=== PATIENT | male | born 1945 | race Caucasian/White ===

== ENCOUNTER 2024-10-10 13:34 | Inpatient (IN) | payer MEDICARE, BC ==
[~2024-10-10] VITALS: Ht 188 cm; Wt 69.4 kg
[2024-10-10 13:34] VITALS: BP 116/59
[2024-10-10 13:59] VITALS: BP 116/59
[2024-10-10 16:55] VITALS: BP 123/66; TEMP 98.1; O2SAT 98
[2024-10-10] MEDS ORDERED: ACETAMINOPHEN 325 MG TABLET PO PRN (18:30)
[2024-10-10] MEDS ORDERED: MAGNESIUM HYDROXIDE 30 ML LIQUID UDC PO PRN ×2 (18:30→21:15)
[2024-10-10] MEDS ORDERED: ONDANSETRON 4 MG/2 ML VIAL IV PRN (18:30)
[2024-10-10] MEDS ORDERED: NORM50IV2 IV (19:27)
[2024-10-10] MEDS ORDERED: ATOR20TA PO (19:27)
[2024-10-10] MEDS ORDERED: CHOL200026 PO (19:27)
[2024-10-10] MEDS ORDERED: VITA1TAB57 PO (19:27)
[2024-10-10] MEDS ORDERED: ACET-2154 PO (19:27)
[2024-10-10] MEDS ORDERED: MAG355OR18 PO (19:27)
[2024-10-10] MEDS ORDERED: VANC750V2 IV (19:27)
[2024-10-10] MEDS ORDERED: ASPI81TA31 PO (19:27)
[2024-10-10] MEDS ORDERED: MAGN400O6 PO (19:27)
[2024-10-10] MEDS ORDERED: ONDA4VIA23 IVP (19:27)
[2024-10-10] MEDS ORDERED: ASCO500T10 PO (19:27)
[2024-10-10] MEDS ORDERED: CEFE2FRO IV (19:27)
[2024-10-10] MEDS ORDERED: RXVAN IV (19:27)
[2024-10-10] MEDS ORDERED: FERR-68 PO (19:27)
[2024-10-10] MEDS ORDERED: DEXTROSE 5% IV SCH (19:30)
[2024-10-10] MEDS ORDERED: VANCOMYCIN IV SCH (19:30)
[2024-10-10] MEDS ORDERED: FERROUS SULFATE 325 MG TABEC PO SCH (21:00)
[2024-10-10] MEDS ORDERED: REMEDY ESSENTIAL ZINC PASTE 113 GM TOP SCH (21:00)
[2024-10-10] MEDS ORDERED: ATORVASTATIN 20 MG TABLET PO SCH (21:00)
[2024-10-10] MEDS ORDERED: MAG HYDROX/AL HYDROX/SIMETH 30 ML LIQUID UDC PO PRN (21:15)
[2024-10-10] MEDS ORDERED: ACETAMINOPHEN 325 MG TABLET-SA PATIENTS-PAIN ONLY PO PRN (21:15)
[2024-10-10] MEDS ORDERED: IV NORMAL SALINE 50 ML BAG IV SCH (21:15)
[2024-10-10] MEDS ORDERED: CEFEPIME HCL 1 G in IV DEXTROSE 5% 50 ML IV SCH ×2 (22:00)
[2024-10-10 22:21] VITALS: BP 102/52; TEMP 99.1; O2SAT 95
[2024-10-10] MEDS ORDERED: CEFEPIME HCL 1 G VIAL ONE (23:07)
[2024-10-10] MEDS ORDERED: VANCOMYCIN IV 200 ML ONE (23:07)
[2024-10-10] MEDS: VANCOMYCIN IV 1,000 MG in IV DEXTROSE 5% 250 ML IV ONE (23:35)
[2024-10-10] MEDS: CEFEPIME HCL 1 G in IV DEXTROSE 5% 50 ML IV ONE (23:54)
[2024-10-11] MEDS ORDERED: IV NS 1000 ML 1,000 ML IV PRN (05:15)
[2024-10-11] MEDS ORDERED: ACETAMINOPHEN 325 MG TABLET PO PRN (05:15)
[2024-10-11 06:12] VITALS: BP 126/88; TEMP 98.6; O2SAT 98
[2024-10-11] MEDS: PANTOPRAZOLE SODIUM 40 MG TABLET.DR PO SCH (06:20)
[2024-10-11 07:40] LABS: BASOPHILS % (AUTO) 0.2 % (0.0-2.0); EOSINOPHILS % (AUTO) 0.6 % (0.0-7.0); HEMATOCRIT 37.5 % (36.7-47.1); HEMOGLOBIN 12.8 g/dL (12.5-16.3); LYMPHOCYTES % (AUTO) 15.2 % (20.5-51.5); MEAN CORPUSCULAR HEMOGLOBIN 28.3 uug (23.8-33.4); MEAN CORPUSCULAR HGB CONC 34 g/dL (32.5-36.3); MEAN CORPUSCULAR VOLUME 82.6 fL (73.0-96.2); MONOCYTES # (AUTO) 0.8 K/uL (0.1-1.30); MONOCYTES % (AUTO) 12.2 % (0.0-11.0); NEUTROPHILS # (AUTO) 4.8 K/uL (1.8-8.9); NEUTROPHILS % (AUTO) 71.8 % (38.5-71.5); PLATELET COUNT (AUTO) 122 K/uL (152-348); RED BLOOD CELL COUNT(AUTO) 4.54 MIL/uL (4.06-5.63); RED CELL DISTRIBUTION WIDTH 14.3 % (12.1-16.2); WHITE BLOOD COUNT (AUTO) 6.7 K/uL (3.6-10.2)
[2024-10-11 07:53] LABS: DIFFERENTIAL COMMENT 1
[2024-10-11 08:00] VITALS: BP 110/59; TEMP 98; O2SAT 97
[2024-10-11 08:11] LABS: IRON, SERUM 15 ug/dL (50-175)
[2024-10-11 08:33] LABS: ALANINE AMINOTRANSFERASE 102 U/L (16-63); ALBUMIN 2.2 g/dL (3.4-5.0); ALKALINE PHOSPHATASE 74 U/L (50-136); ASPARTATE AMINOTRANSFERASE 96 U/L (15-37); BILIRUBIN,TOTAL 0.9 mg/dL (0.2-1.0); CALCIUM 8.7 mg/dL (8.5-10.1); CARBON DIOXIDE 29 mmol/L (21-32); CHLORIDE 103 mmol/L (98-107); CHOLESTEROL 128 mg/dL (<200); CREATININE 1.1 mg/dL (0.6-1.3); GLUCOSE 104 mg/dL (74-106); HDL CHOLESTEROL 51 mg/dL (40-60); MAGNESIUM 1.5 mg/dL (1.8-2.4); PHOSPHOROUS 2.9 mg/dL (2.5-4.9); POTASSIUM 3.8 mmol/L (3.5-5.1); SODIUM SERUM 137 mmol/L (136-145); TOTAL PROTEIN, SERUM 5.7 g/dL (6.4-8.2); TRIGLYCERIDES 64 MG/DL (30-150); UREA NITROGEN, BLOOD 9 mg/dL (7-18)
[2024-10-11] MEDS: ASPIRIN 81 MG TAB.CHEW PO SCH (09:00)
[2024-10-11] MEDS ORDERED: CHOLECALCIFEROL 1,000 UNIT TABLET PO SCH (09:00)
[2024-10-11] MEDS ORDERED: ASCORBIC ACID 500 MG TABLET PO SCH (09:00)
[2024-10-11] MEDS ORDERED: VITAMIN B COMPLEX 1 TABLET PO SCH (09:00)
[2024-10-11] MEDS ORDERED: ASPIRIN 81 MG TAB.CHEW PO SCH (09:00)
[2024-10-11 09:02] LABS: THYROID STIMULATING HORMONE 4.421 mIU/mL (0.358-3.740)
[2024-10-11] MEDS: FERROUS SULFATE 325 MG TABEC PO SCH (10:44)
[2024-10-11] MEDS: FOLIC ACID/VITAMIN B COMP W-C TABLET PO SCH (10:44)
[2024-10-11] MEDS: ASCORBIC ACID 500 MG TABLET PO SCH (10:45)
[2024-10-11] MEDS: CHOLECALCIFEROL 1,000 UNIT TABLET PO SCH (10:45)
[2024-10-11] MEDS: CEFEPIME HCL 2 GM in IV DEXTROSE 5% 100 ML IV SCH (10:49)
[2024-10-11] MEDS: MAGNESIUM OXIDE 400 MG TABLET PO ONE (10:49)
[2024-10-11 16:00] VITALS: BP 116/59; TEMP 97.2; O2SAT 97
[2024-10-11] MEDS ORDERED: SWABABLE VALVE TRANSFER SET EA MC ONE (16:52)
[2024-10-11] MEDS ORDERED: IV NORMAL SALINE 250 ML IV ONE (16:52)
[2024-10-11] MEDS ORDERED: IOHEXOL 300MG/ML 100 ML INFUS..BTL ONE (16:52)
[2024-10-11 20:00] VITALS: BP 112/59; TEMP 98.1; O2SAT 94
[2024-10-11] MEDS: ATORVASTATIN 20 MG TABLET PO SCH (20:22)
[2024-10-12 00:03] LABS: *BILIRUBIN,URIN NEGATIVE (NEGATIVE); *BLOOD, URINE 3+ (NEGATIVE); *CLARITY,URINE CLOUDY (CLEAR); *COLOR,URINE AMBER (YELLOW); *KETONES,URINE NEGATIVE (NEGATIVE); *UROBILINOGEN,URINE 0.2 E.U./dl (NORMAL); LEUKOCYTE ESTERASE ,URINE NEGATIVE (NEGATIVE); NITRITE, URINE NEGATIVE (NEGATIVE); UGLUCOSE NEGATIVE (NEGATIVE)
[2024-10-12 00:08] LABS: *PROTEIN,URINE 3+ (NEGATIVE)
[2024-10-12 00:56] LABS: BACTERIA,URINE NONE SEEN /HPF (NONE SEEN); RBC,URINE TNTC /HPF (0-3); SQUAMOUS EPITHELIAL CELL,UR FEW /HPF (NONE SEEN); WBC,URINE 0-3 /HPF (0-3)
[2024-10-12 06:00] VITALS: BP 105/56; TEMP 97.8; O2SAT 94
[2024-10-12 07:51] VITALS: BP_SYST 122; BP_DIAS 48; BP_DIAS 59; TEMP 97.2; O2SAT 100
[2024-10-12 08:08] LABS: BASOPHILS % (AUTO) 0.3 % (0.0-2.0); EOSINOPHILS % (AUTO) 0.6 % (0.0-7.0); HEMATOCRIT 38.7 % (36.7-47.1); HEMOGLOBIN 13.1 g/dL (12.5-16.3); LYMPHOCYTES # (AUTO) 1.1 K/uL (0.8-4.8); LYMPHOCYTES % (AUTO) 15.3 % (20.5-51.5); MEAN CORPUSCULAR HGB CONC 34 g/dL (32.5-36.3); MEAN CORPUSCULAR VOLUME 82.6 fL (73.0-96.2); MONOCYTES # (AUTO) 0.9 K/uL (0.1-1.30); MONOCYTES % (AUTO) 11.6 % (0.0-11.0); NEUTROPHILS # (AUTO) 5.4 K/uL (1.8-8.9); NEUTROPHILS % (AUTO) 72.2 % (38.5-71.5); PLATELET COUNT (AUTO) 171 K/uL (152-348); RED BLOOD CELL COUNT(AUTO) 4.69 MIL/uL (4.06-5.63); RED CELL DISTRIBUTION WIDTH 13.9 % (12.1-16.2); WHITE BLOOD COUNT (AUTO) 7.5 K/uL (3.6-10.2)
[2024-10-12 08:15] LABS: DIFFERENTIAL COMMENT 1
[2024-10-12] MEDS: ENSURE ENLIVE (VAN) 240 ML LIQUID PO SCH (08:25)
[2024-10-12 08:29] LABS: CARBON DIOXIDE 29 mmol/L (21-32); CHLORIDE 103 mmol/L (98-107); CREATININE 1.3 mg/dL (0.6-1.3); GLUCOSE 97 mg/dL (74-106); POTASSIUM 4.1 mmol/L (3.5-5.1); SODIUM SERUM 138 mmol/L (136-145); UREA NITROGEN, BLOOD 13 mg/dL (7-18)
[2024-10-12] MEDS: CEFEPIME HCL 1 G in IV DEXTROSE 5% 50 ML IV SCH (10:46)
[2024-10-12 16:00] VITALS: BP 99/51; TEMP 97.6; O2SAT 97
[2024-10-12 21:24] VITALS: BP 101/51; TEMP 99.3; O2SAT 93
[2024-10-13 06:44] VITALS: BP 102/63; TEMP 98.1; O2SAT 95
[2024-10-13 08:00] VITALS: BP 146/74; TEMP 98.1; O2SAT 99
[2024-10-13 17:00] VITALS: BP 103/51; TEMP 98.1; O2SAT 98
[2024-10-13 17:04] LABS: BASOPHILS % (AUTO) 0.5 % (0.0-2.0); EOSINOPHILS # (AUTO) 0.2 K/uL (0.0-0.7); EOSINOPHILS % (AUTO) 2.4 % (0.0-7.0); HEMATOCRIT 39.5 % (36.7-47.1); HEMOGLOBIN 13.5 g/dL (12.5-16.3); LYMPHOCYTES # (AUTO) 1.1 K/uL (0.8-4.8); LYMPHOCYTES % (AUTO) 14.5 % (20.5-51.5); MEAN CORPUSCULAR HEMOGLOBIN 28.4 uug (23.8-33.4); MEAN CORPUSCULAR HGB CONC 34 g/dL (32.5-36.3); MEAN CORPUSCULAR VOLUME 83.2 fL (73.0-96.2); MONOCYTES # (AUTO) 0.9 K/uL (0.1-1.30); MONOCYTES % (AUTO) 11.7 % (0.0-11.0); NEUTROPHILS # (AUTO) 5.4 K/uL (1.8-8.9); NEUTROPHILS % (AUTO) 70.9 % (38.5-71.5); PLATELET COUNT (AUTO) 248 K/uL (152-348); RED BLOOD CELL COUNT(AUTO) 4.75 MIL/uL (4.06-5.63); WHITE BLOOD COUNT (AUTO) 7.6 K/uL (3.6-10.2)
[2024-10-13 17:06] LABS: DIFFERENTIAL COMMENT 1
[2024-10-13 20:55] VITALS: BP 123/72; TEMP 98; O2SAT 98
[2024-10-14 06:05] VITALS: BP 102/54; TEMP 97.5; O2SAT 98
[2024-10-14 07:58] LABS: BASOPHILS % (AUTO) 0.3 % (0.0-2.0); EOSINOPHILS # (AUTO) 0.2 K/uL (0.0-0.7); EOSINOPHILS % (AUTO) 2.5 % (0.0-7.0); HEMATOCRIT 39.9 % (36.7-47.1); HEMOGLOBIN 13.4 g/dL (12.5-16.3); LYMPHOCYTES # (AUTO) 1.4 K/uL (0.8-4.8); LYMPHOCYTES % (AUTO) 18.1 % (20.5-51.5); MEAN CORPUSCULAR HEMOGLOBIN 28.1 uug (23.8-33.4); MEAN CORPUSCULAR HGB CONC 34 g/dL (32.5-36.3); MEAN CORPUSCULAR VOLUME 83.3 fL (73.0-96.2); MONOCYTES # (AUTO) 0.9 K/uL (0.1-1.30); MONOCYTES % (AUTO) 11.3 % (0.0-11.0); NEUTROPHILS # (AUTO) 5.1 K/uL (1.8-8.9); NEUTROPHILS % (AUTO) 67.8 % (38.5-71.5); PLATELET COUNT (AUTO) 273 K/uL (152-348); RED BLOOD CELL COUNT(AUTO) 4.78 MIL/uL (4.06-5.63); RED CELL DISTRIBUTION WIDTH 14.2 % (12.1-16.2); WHITE BLOOD COUNT (AUTO) 7.6 K/uL (3.6-10.2)
[2024-10-14 08:00] VITALS: BP 102/58; TEMP 98; O2SAT 99
[2024-10-14 08:07] LABS: DIFFERENTIAL COMMENT 1
[2024-10-14 16:18] VITALS: BP 127/82; TEMP 97.8; O2SAT 99
[2024-10-14] MEDS ORDERED: LACTULOSE 20 G/30 ML LIQUID UDC PO PRN (18:30)
[2024-10-14] MEDS ORDERED: BISACODYL 10 MG SUPP.RECT RC PRN (18:45)
[2024-10-14 19:56] VITALS: BP 142/75; TEMP 97.9; O2SAT 98
[2024-10-14] MEDS: ENOXAPARIN SODIUM 40 MG/0.4 ML DISP.SYRIN SQ SCH (21:00)
[2024-10-15 06:23] VITALS: BP 110/52; TEMP 97.8; O2SAT 96
[2024-10-15 08:00] VITALS: BP 131/86; TEMP 97.8; O2SAT 97
[2024-10-15 08:32] LABS: BASOPHILS # (AUTO) 0.1 K/UL (0.0-0.2); BASOPHILS % (AUTO) 0.8 % (0.0-2.0); EOSINOPHILS # (AUTO) 0.1 K/uL (0.0-0.7); EOSINOPHILS % (AUTO) 1.1 % (0.0-7.0); HEMATOCRIT 40.6 % (36.7-47.1); HEMOGLOBIN 14.2 g/dL (12.5-16.3); LYMPHOCYTES # (AUTO) 1.5 K/uL (0.8-4.8); LYMPHOCYTES % (AUTO) 14.3 % (20.5-51.5); MEAN CORPUSCULAR HEMOGLOBIN 29.1 uug (23.8-33.4); MEAN CORPUSCULAR HGB CONC 35 g/dL (32.5-36.3); MEAN CORPUSCULAR VOLUME 83.1 fL (73.0-96.2); MONOCYTES % (AUTO) 9.3 % (0.0-11.0); NEUTROPHILS # (AUTO) 7.9 K/uL (1.8-8.9); NEUTROPHILS % (AUTO) 74.5 % (38.5-71.5); PLATELET COUNT (AUTO) 338 K/uL (152-348); RED BLOOD CELL COUNT(AUTO) 4.88 MIL/uL (4.06-5.63); RED CELL DISTRIBUTION WIDTH 14.1 % (12.1-16.2); WHITE BLOOD COUNT (AUTO) 10.6 K/uL (3.6-10.2)
[2024-10-15 08:44] LABS: DIFFERENTIAL COMMENT 1
[2024-10-15 15:58] VITALS: BP 103/54; TEMP 97.2; O2SAT 97
[2024-10-15 20:17] VITALS: BP 98/56; TEMP 97.8; O2SAT 98
[2024-10-15] MEDS: NITROFURANTOIN MACROCRYSTAL 100 MG CAPSULE PO SCH (20:52)
[2024-10-16 07:03] VITALS: BP 111/64; TEMP 98.2; O2SAT 97
[2024-10-16 07:46] VITALS: BP 100/57; TEMP 98; O2SAT 96
[2024-10-16 08:24] LABS: BASOPHILS # (AUTO) 0.1 K/UL (0.0-0.2); BASOPHILS % (AUTO) 0.6 % (0.0-2.0); EOSINOPHILS # (AUTO) 0.2 K/uL (0.0-0.7); EOSINOPHILS % (AUTO) 1.9 % (0.0-7.0); HEMATOCRIT 36.7 % (36.7-47.1); HEMOGLOBIN 12.3 g/dL (12.5-16.3); LYMPHOCYTES # (AUTO) 1.5 K/uL (0.8-4.8); LYMPHOCYTES % (AUTO) 16.6 % (20.5-51.5); MEAN CORPUSCULAR HEMOGLOBIN 27.7 uug (23.8-33.4); MEAN CORPUSCULAR HGB CONC 34 g/dL (32.5-36.3); MEAN CORPUSCULAR VOLUME 82.4 fL (73.0-96.2); MONOCYTES # (AUTO) 0.8 K/uL (0.1-1.30); MONOCYTES % (AUTO) 8.9 % (0.0-11.0); NEUTROPHILS # (AUTO) 6.7 K/uL (1.8-8.9); PLATELET COUNT (AUTO) 333 K/uL (152-348); RED BLOOD CELL COUNT(AUTO) 4.46 MIL/uL (4.06-5.63); RED CELL DISTRIBUTION WIDTH 14.2 % (12.1-16.2); WHITE BLOOD COUNT (AUTO) 9.3 K/uL (3.6-10.2)
[2024-10-16 08:36] LABS: DIFFERENTIAL COMMENT 1
[2024-10-16 16:17] VITALS: BP 122/72; TEMP 98.4; O2SAT 98
[2024-10-16 20:09] VITALS: BP 110/69; TEMP 98.1; O2SAT 96
[2024-10-17 05:20] VITALS: BP 121/79; TEMP 98; O2SAT 99
[2024-10-17 07:46] VITALS: BP 107/57; TEMP 98; O2SAT 97
[2024-10-17 16:02] VITALS: BP 112/58; TEMP 97.6; O2SAT 95
[2024-10-17] MEDS: TAMSULOSIN HCL 0.4 MG CAP.SR.24H PO SCH (20:06)
[2024-10-17 20:07] VITALS: BP 98/54; TEMP 97.8; O2SAT 97
[2024-10-18 06:06] VITALS: BP 100/57; TEMP 97.8; O2SAT 98
[2024-10-18 07:03] LABS: BASOPHILS # (AUTO) 0.1 K/UL (0.0-0.2); BASOPHILS % (AUTO) 0.8 % (0.0-2.0); EOSINOPHILS # (AUTO) 0.1 K/uL (0.0-0.7); EOSINOPHILS % (AUTO) 1.1 % (0.0-7.0); HEMATOCRIT 36.8 % (36.7-47.1); HEMOGLOBIN 12.5 g/dL (12.5-16.3); LYMPHOCYTES # (AUTO) 1.6 K/uL (0.8-4.8); LYMPHOCYTES % (AUTO) 16.1 % (20.5-51.5); MEAN CORPUSCULAR HEMOGLOBIN 28.1 uug (23.8-33.4); MEAN CORPUSCULAR HGB CONC 34 g/dL (32.5-36.3); MEAN CORPUSCULAR VOLUME 82.5 fL (73.0-96.2); MONOCYTES # (AUTO) 0.7 K/uL (0.1-1.30); MONOCYTES % (AUTO) 6.9 % (0.0-11.0); NEUTROPHILS # (AUTO) 7.4 K/uL (1.8-8.9); NEUTROPHILS % (AUTO) 75.1 % (38.5-71.5); PLATELET COUNT (AUTO) 382 K/uL (152-348); RED BLOOD CELL COUNT(AUTO) 4.46 MIL/uL (4.06-5.63); WHITE BLOOD COUNT (AUTO) 9.8 K/uL (3.6-10.2)
[2024-10-18 07:05] LABS: DIFFERENTIAL COMMENT 1
[2024-10-18 07:25] LABS: IRON, SERUM 39 ug/dL (50-175)
[2024-10-18 07:39] LABS: CALCIUM 9.4 mg/dL (8.5-10.1); CARBON DIOXIDE 30 mmol/L (21-32); CHLORIDE 104 mmol/L (98-107); CREATININE 1.1 mg/dL (0.6-1.3); FERRITIN 326 ng/mL (26-388); GLUCOSE 100 mg/dL (74-106); POTASSIUM 4.1 mmol/L (3.5-5.1); SODIUM SERUM 141 mmol/L (136-145); UREA NITROGEN, BLOOD 16 mg/dL (7-18)
[2024-10-18 08:00] VITALS: BP 105/65; TEMP 97.6; O2SAT 97
[2024-10-18] MEDS: FINASTERIDE 5 MG TABLET PO SCH (12:48)
[2024-10-18] MEDS: TAMSULOSIN HCL 0.4 MG CAP.SR.24H PO SCH (12:49)
[2024-10-18 15:55] VITALS: BP 101/63; TEMP 97.8; O2SAT 97
[2024-10-18 16:00] VITALS: BP 123/60; TEMP 97.2; O2SAT 97
[2024-10-18] MEDS: SOD FERRIC GLUC COMPLX/SUCROSE 125 MG in IV NORMAL SALINE 100 ML IV SCH (18:56)
[2024-10-18 20:00] VITALS: BP 116/65; TEMP 97.3; O2SAT 96
[2024-10-18] MEDS ORDERED: NITROFURANTOIN/NITROFURAN MAC 100 MG CAPSULE PO ONE (20:51)
[2024-10-19] MEDS: BISACODYL 10 MG SUPP.RECT RC PRN (01:32)
[2024-10-19 06:40] VITALS: BP 103/59; TEMP 97.9; O2SAT 97
[2024-10-19 07:02] LABS: BASOPHILS # (AUTO) 0.1 K/UL (0.0-0.2); BASOPHILS % (AUTO) 0.7 % (0.0-2.0); EOSINOPHILS # (AUTO) 0.1 K/uL (0.0-0.7); EOSINOPHILS % (AUTO) 1.3 % (0.0-7.0); HEMATOCRIT 35.9 % (36.7-47.1); HEMOGLOBIN 12.1 g/dL (12.5-16.3); LYMPHOCYTES # (AUTO) 1.5 K/uL (0.8-4.8); LYMPHOCYTES % (AUTO) 15.1 % (20.5-51.5); MEAN CORPUSCULAR HEMOGLOBIN 27.8 uug (23.8-33.4); MEAN CORPUSCULAR HGB CONC 34 g/dL (32.5-36.3); MEAN CORPUSCULAR VOLUME 82.7 fL (73.0-96.2); MONOCYTES # (AUTO) 0.7 K/uL (0.1-1.30); MONOCYTES % (AUTO) 6.8 % (0.0-11.0); NEUTROPHILS # (AUTO) 7.5 K/uL (1.8-8.9); NEUTROPHILS % (AUTO) 76.1 % (38.5-71.5); PLATELET COUNT (AUTO) 399 K/uL (152-348); RED BLOOD CELL COUNT(AUTO) 4.35 MIL/uL (4.06-5.63); RED CELL DISTRIBUTION WIDTH 13.8 % (12.1-16.2); WHITE BLOOD COUNT (AUTO) 9.9 K/uL (3.6-10.2)
[2024-10-19 07:07] LABS: DIFFERENTIAL COMMENT 1
[2024-10-19 08:00] VITALS: BP 101/42; TEMP 97.6; O2SAT 97
== END 2024-10-19 10:35 | disposition home health service (06) | DRG 69 ==
LOC: EDBD
PROVIDERS: ADMIT Physical Medicine & Rehabilitation Pain Medicine; ATTEND Physical Medicine & Rehabilitation Pain Medicine
DX: G45.9 Transient cerebral ischemic attack, unspecified (principal); J69.0 Pneumonitis due to inhalation of food and vomit; D61.818 Other pancytopenia; D68.59 Other primary thrombophilia; G99.2 Myelopathy in diseases classified elsewhere; I82.611 Acute embolism and thrombosis of superficial veins of right upper extremity; N17.9 Acute kidney failure, unspecified; E87.20 Acidosis, unspecified; I69.893 Ataxia following other cerebrovascular disease; R53.1 Weakness; Z86.711 Personal history of pulmonary embolism; Z86.73 Personal history of transient ischemic attack (TIA), and cerebral infarction without residual deficits; I69.822 Dysarthria following other cerebrovascular disease; D50.9 Iron deficiency anemia, unspecified; T83.83XD Hemorrhage due to genitourinary prosthetic devices, implants and grafts, subsequent encounter; E78.5 Hyperlipidemia, unspecified; G20.A1 Parkinson's disease without dyskinesia, without mention of fluctuations; E83.42 Hypomagnesemia; N40.1 Benign prostatic hyperplasia with lower urinary tract symptoms; R33.8 Other retention of urine; Z95.828 Presence of other vascular implants and grafts
CPT/HCPCS: 36415; 82378; 83550; 83735; 84100; 84443; 85025; 85730; 97535-GO-CO; C1758; J0692; J1650; J2916; J3370; J7040; J7050; Q9967